=== PATIENT | female | born 2000 | race Caucasian/White ===

== ENCOUNTER 2021-08-23 17:33 | Outpatient (CLI) | payer OTHER, SELFPAY ==
--- NOTE | ~2021-08-23 | XR_ITS ---
EXAMINATION: XR chest 2V DATE: 08/23/2021 17:58 INDICATION: Shortness of breath TECHNIQUE: PA and lateral views of the chest are obtained. COMPARISON: None available FINDINGS: The lungs are free of acute opacities. There is no pleural effusion or pneumothorax. The ca rdiomediastinal silhouette is normal. The visualized bones and soft tissues are unremarkable. IMPRESSION: 1. No acute cardiopulmonary abnormality. Reviewed, dictated and finalized at location F.
== END 2021-08-23 17:34 | disposition home or self-care (01) ==
LOC: CHSIMG 17:42
PROVIDERS: PCP Family Medicine; Visit Provider Family Medicine
DX: R06.89 Other abnormalities of breathing (principal)
CPT/HCPCS: 71046

== ENCOUNTER 2021-12-21 15:53 | Emergency (ER) | payer OTHER, SELFPAY ==
[2021-12-21 16:00] VITALS: BP 126/85; PULSE 94; RESP 20; TEMP 36.5; O2SAT 99
[2021-12-21 16:02] VITALS: BP 126/85; PULSE 94; RESP 20; O2SAT 99
[2021-12-21 16:06] VITALS: TEMP 36.5
[2021-12-21] MEDS: ONDANSETRON INJ 4 MG/2 ML VIAL IV PUSH (16:28)
[2021-12-21] MEDS: SODIUM CHLORIDE 0.9% IV 1,000 ML 999 ML IV CONT (16:30)
[2021-12-21 16:41] LABS: Basophils Absolute Auto 0.03 K/mm3 (0.00-0.10); Basophils Percent Auto 0.2 % (0.0-1.0); Eosinophils Absolute Auto 0.07 K/mm3 (0.02-0.50); Eosinophils Percent Auto 0.5 % (1.0-6.0); Hematocrit 34.9 % (35.0-49.0); Hemoglobin 11.7 g/dL (12.0-15.0); Immature Granulocyte Absolute 0.07 K/mm3 (0.00-0.00); Immature Granulocyte Percent A 0.5 % (0.0-0.0); Lymphocytes Absolute Auto 1.24 K/mm3 (1.10-4.50); Lymphocytes Percent Auto 8.6 % (18.0-42.0); Mean Corpuscular HGB Conc 33.5 g/dL (32.0-36.0); Mean Corpuscular Hemoglobin 29.7 pg (27.0-31.0); Mean Corpuscular Volume 88.6 fL (78.0-102.0); Mean Platelet Volume 9.9 fl (9.2-11.8); Monocytes Absolute Auto 0.78 K/mm3 (0.10-0.90); Monocytes Percent Auto 5.4 % (2.0-11.0); Neutrophils Absolute Auto 12.2 K/mm3 (1.7-7.2); Neutrophils Percent Auto 84.8 % (50.0-70.0); Platelet Count Result 212 K/mm3 (150-420); Red Blood Count 3.94 M/mm3 (4.20-5.40); White Blood Count 14.4 K/mm3 (4.8-10.8)
[2021-12-21 16:56] LABS: Alanine Aminotransferase 19 U/L (14-59); Albumin Level 3.6 g/dL (3.4-5.0); Alkaline Phosphatase 71 U/L (46-116); Anion Gap 10 mmol/L (8-16); Aspartate Amino Transferase 11 U/L (15-37); Bilirubin,Total 0.3 mg/dL (0.00-1.00); Blood Urea Nitrogen 6 mg/dL (7-18); Calcium 8.8 mg/dL (8.5-10.1); Carbon Dioxide 26 mmol/L (21-32); Chloride 101 mmol/L (98-108); Estimated CRCL calculation 109 ml/min; Estimated Glomerular Filt Rate > 60; Glucose 86 mg/dL (70-99); Osmolality Calculated 280 mOsm/kg (285-295); Potassium 3.4 mmol/L (3.5-5.1); Sodium 137 mmol/L (136-145); Total Protein 7.1 g/dL (6.4-8.2)
[2021-12-21 16:58] LABS: Add Urine Microscopic? YES; Appearance Urine Cloudy (Clear); Bilirubin Urine Negative (Negative); Blood Urine Negative (Negative); Color Urine Yellow (Yellow); Glucose Urine UA Negative (Negative); Ketones Urine 3+ (Negative); Leukocyte Esterase Ur Trace (Negative); Nitrate Urine Positive (Negative); Protein Urine Negative (Negative); Urobilinogen Urine 0.2 mg/dL (0.2-1.0); pH Urine 7.5 (5.0-8.0)
[2021-12-21 17:02] LABS: Bacteria Urine 4+ /hpf; RBC Urine None seen /hpf (0-2); Squamous Epithelial Cell Urine Moderate /hpf (Few)
--- NOTE | 2021-12-21 17:07 | ED.NAVMDI ---
HPI - Nausea/Vomiting/Diarrhea General Chief complaint: Nausea/Vomiting/Diarrhea Stated complaint: vomiting () Time Seen by Provider: 12/21/21 16:24 Source: patient and family Mode of arrival: ambulatory Limitations: no limitations History of Present Illness HPI Narrative: This is a 21-year-old female with episodes of nausea vomiting she is 11 weeks with some mild dysuria with no flank pain no fever chills, with no flank pain no chest pain no abdominal pain with no hematuria. MD elicited complaint: nausea and vomiting Related Data Home Medications Medication Instructions Recorded Confirmed albuterol sulfate 90 mcg/actuation 2 puff inhalation PRN 12/21/21 12/21/21 aerosol inhaler prenat.vits,maria guadalupe,[id number] 1 tablet PO DAILY 12/21/21 12/21/21 Allergies Allergy/AdvReac Type Severity Reaction Status Date / Time No Known Allergies Allergy Unverified 07/22/17 10:17 Review of Systems Review of Systems: All systems reviewed & are unremarkable except as noted in HPI and below PMFSH Past Medical History Medical History Patient denies medical problems Exam Const: General: healthy appearing HENMT: Head: normal to inspection General nose exam: Normal external nose present Face and sinus: normal facial exam Mouth: Yes Normal oral and palatal mucosa present Teeth and gingiva: dentition normal Eyes: Conjunctivae: conjunctivae normal Pupils: Equal, round and reactive pupils present EOM: EOMs intact bilaterally Neck: Neck: normal visual inspection, no lymphadenopathy and no meningeal signs Chest: Chest palpation & inspection: normal inspection of the chest Resp: Effort & Inspection: normal respiratory effort Cardio: Rate: regular rate Rhythm: regular rhythm GI: GI Palp: Yes Soft to palpation Auscultation: normal bowel sounds Skin: General skin exam: normal color Neuro: General: patient oriented x3 Cranial nerves: Yes Nystagmus not present Speech: normal speech Gait exam (Neuro): Normal gait present Extrem: General: normal to inspection Psych: Mental Status: mental status grossly normal Affect: normal affect Course Course Emergency Course: patient presents with nausea vomiting received Zofran IV along with IV fluids and blood work and urinalysis reviewed UA shows that the patient has a urinary tract infection and will administer ceftriaxone IM. Vital Signs Vital signs: Vital Signs Pulse Rate 94 12/21/21 16:02 Respiratory Rate 20 12/21/21 16:02 Blood Pressure 126/85 12/21/21 16:02 Pulse Oximetry 99 12/21/21 16:02 Oxygen Delivery Room Air 12/21/21 16:02 Temperature 36.5 C 12/21/21 16:06 Pulse Rate 94 12/21/21 16:02 Respiratory Rate 20 12/21/21 16:02 Blood Pressure 126/85 12/21/21 16:02 Pulse Oximetry 99 12/21/21 16:02 Oxygen Delivery Room Air 12/21/21 16:02 MDM - Nausea/Vomiting/Diarrhea Lab Data Result diagrams: 12/21/21 16:36 12/21/21 16:36 Labs: Lab Results 12/21/21 12/21/21 12/21/21 Range/Units 16:36 16:36 16:51 WBC 14.4 H (4.8-10.8) K/mm3 RBC 3.94 L (4.20-5.40) M/mm3 Hgb 11.7 L (12.0-15.0) g/dL Hct 34.9 L (35.0-49.0) % MCV 88.6 (78.0-102.0) fL MCH 29.7 (27.0-31.0) pg MCHC 33.5 (32.0-36.0) g/dL RDW 12.0 (11.6-14.4) % Plt Count 212 (150-420) K/mm3 MPV 9.9 (9.2-11.8) fl Immature Gran % (Auto) 0.5 H (0.0-0.0) % Neut % (Auto) 84.8 H (50.0-70.0) % Lymph % (Auto) 8.6 L (18.0-42.0) % [place] % (Auto) 5.4 (2.0-11.0) % Eos % (Auto) 0.5 L (1.0-6.0) % Baso % (Auto) 0.2 (0.0-1.0) % Lymph # (Auto) 1.24 (1.10-4.50) K/mm3 Door # (Auto) 0.78 (0.10-0.90) K/mm3 Eos # (Auto) 0.07 (0.02-0.50) K/mm3 Baso # (Auto) 0.03 (0.00-0.10) K/mm3 Abs Immat Gran (auto) 0.07 H (0.00-0.00) K/mm3 Absolute Neuts (auto) 12.2 H (1.7-7.2) K/mm3 Absolute Nuc
[2021-12-21] MEDS: cefTRIAXone 1 GM, LIDOCAINE HCL 1% LOCAL INJ 2.1 ML IM (17:49)
[2021-12-21 17:50] VITALS: BP 123/78; PULSE 20; RESP 18; TEMP 36.3; O2SAT 100
== END 2021-12-21 18:10 | disposition home or self-care (01) ==
PROVIDERS: Emergency Provider Emergency Medicine; PCP Family Medicine
DX: E86.0 Dehydration (principal); R11.2 Nausea with vomiting, unspecified; N30.00 Acute cystitis without hematuria
CPT/HCPCS: 36415; 80053; 81001; 85025; 96361; 96372; 96374; 99284; J0696; J2405; J7030

== ENCOUNTER 2022-05-02 13:12 | Observation (INO) | payer OTHER, SELFPAY ==
[2022-05-02] VITALS (10 sets, daily range): BP systolic 110–133; BP diastolic 52–71; PULSE 99–129; TEMP 36.8; BMI 29.2
--- NOTE | 2022-05-02 14:00 | OBADM ---
This patient, Veena Meyer, admitted to the OB room 116 for observation. Patient/family oriented to hospital policies and general routines including ID bracelet, bed and alarms, visiting hours, pain management, procedures, bathroom and other care routines, personal items, smoking policy, room service/diet, and visiting hours. Patient/Family are encouraged to report perceived risks to care and to ask questions if they do not understand what they are told or what they should do.
[2022-05-02 14:13] LABS: Appearance Urine Slightly Cloudy (Clear); Bilirubin Urine Negative (Negative); Blood Urine Negative (Negative); Color Urine Yellow (Yellow); Glucose Urine UA Negative (Negative); Ketones Urine 3+ mg/dL (Negative); Leukocyte Esterase Ur Trace LEU/UL (Negative); Nitrate Urine Positive (Negative); Protein Urine 1+ mg/dL (Negative); Specific Grav Ur >= 1.030 (1.001-1.035); Urobilinogen Urine 0.2 mg/dL (<2.0)
[2022-05-02 14:20] LABS: Bacteria Urine 2+ /hpf; Mucus Urine Few /lpf; Squamous Epithelial Cell Urine Many /hpf (Few)
[2022-05-02 14:35] LABS: Add Urine Microscopic? YES
[2022-05-02 14:55] LABS: Basophils Percent Auto 0.2 % (0.2-1.2); Eosinophils Percent Auto 0.1 % (0-4.4); Hematocrit 33.3 % (37.0-47.0); Immature Granulocyte Absolute 0.23 K/mm3 (0.00-0.031); Immature Granulocyte Percent A 1.4 % (0-0.5); Lymphocytes Absolute Auto 0.68 K/mm3 (0.9-3.2); Lymphocytes Percent Auto 4.1 % (18.3-44.2); Mean Corpuscular Hemoglobin 29.9 pg (26-34); Mean Corpuscular Volume 90.5 fl (80-100); Mean Platelet Volume 10.3 fl (7.4-10.4); Monocytes Absolute Auto 0.8 K/mm3 (0.1-0.6); Neutrophils Absolute Auto 14.7 K/mm3 (1.3-6.7); Neutrophils Percent Auto 89.2 % (45.5-73.1); Platelet Count Result 157 k/mm3 (150-375); Red Blood Count 3.68 M/mm3 (4.2-5.4); Red Cell Distribution Width 13.2 % (11.5-14.5); White Blood Count 16.5 K/mm3 (4.5-10.0)
[2022-05-02] MEDS: LACTATED RINGERS 1,000 ML 999 ML IV CONT (15:03)
[2022-05-02] MEDS: ONDANSETRON INJ 4 MG/2 ML VIAL IV PUSH (15:03)
[2022-05-02 15:04] LABS: Alanine Aminotransferase 21 U/L (6-35); Albumin Level 3.8 g/dL (3.5-5.1); Alkaline Phosphatase 114 U/L (38-126); Anion Gap 4 mmol/L (8-16); Aspartate Amino Transferase 20 U/L (14-36); Bilirubin,Total 0.4 mg/dL (0.2-1.3); Blood Urea Nitrogen 9 mg/dL (7-17); Calcium 8.5 mg/dL (8.4-10.2); Carbon Dioxide 25 mmol/L (22-30); Chloride 102 mmol/L (98-107); Estimated Glomerular Filt Rate > 60; Glucose 83 mg/dL (65-110); Potassium 3.7 mmol/L (3.4-5.0); Sodium 131 mmol/L (137-145)
[2022-05-02] MEDS: FAMOTIDINE 20 MG/2 ML VIAL IV PUSH (15:06)
--- NOTE | 2022-05-02 15:30 | PC.NURSE ---
Nausea has resolved.
[2022-05-02 15:33] LABS: Fetal Fibronectin Negative
[2022-05-02] MEDS: SODIUM CHLORIDE 0.9% IV 250 ML 100 ML IV CONT (16:15)
[2022-05-02] MEDS: cefTRIAXone 1 GM in DEXTROSE 5% IN WATER 50 ML IVPB (16:19)
--- NOTE | 2022-05-03 16:12 | PM.OBTRLD ---
OB - Triage/Final Diagnosis Visit Information Date of evaluation: 05/30/22 Reason for evaluation: other (nausea, vomiting) Comments/Additional reasons for admission: I have assessed the risk for this patient, Veena Meyer, and determined that she would benefit from observation care. Evaluation Laboratory results: Laboratory Tests 05/02/22 05/02/22 05/02/22 14:03 14:36 14:36 WBC 16.5 H RBC 3.68 L Hgb 11.0 L Hct 33.3 L MCV 90.5 MCH 29.9 MCHC 33.0 RDW 13.2 Plt Count 157 MPV 10.3 Immature Gran % (Auto) 1.4 H Neut % (Auto) 89.2 H Lymph % (Auto) 4.1 L [place] % (Auto) 5.0 Eos % (Auto) 0.1 Baso % (Auto) 0.2 Lymph # (Auto) 0.68 L [place] # (Auto) 0.8 H Eos # (Auto) 0.0 Baso # (Auto) 0.0 Abs Immat Gran (auto) 0.23 H Absolute Neuts (auto) 14.7 H Absolute Nucleated RBC 0.0 Nucleated RBC % 0.0 Sodium Potassium Chloride Carbon Dioxide Anion Gap BUN Creatinine Estim Creat Clear Calc Estimated GFR Glucose Calcium Total Bilirubin AST ALT Alkaline Phosphatase Total Protein Albumin Urine Color Yellow Urine Appearance Slightly cloudy Urine pH 6.0 Ur Specific [place] >= 1.030 Urine Protein 1+ H Urine Glucose (UA) Negative Urine Ketones 3+ H Ur Blood (Man) Negative Urine Nitrate Positive H Urine Bilirubin Negative Urine Urobilinogen 0.2 Leukocyte Esterase Rfl Trace H Urine RBC 6-10 H Urine WBC 4-6 H Ur Squamous Epith Cells Many H Urine Bacteria 2+ H Urine Mucus Few H Fibronectin Negative 05/02/22 14:36 WBC RBC Hgb Hct MCV MCH MCHC RDW Plt Count MPV Immature Gran % (Auto) Neut % (Auto) Lymph % (Auto) [place] % (Auto) Eos % (Auto) Baso % (Auto) Lymph # (Auto) [place] # (Auto) Eos # (Auto) Baso # (Auto) Abs Immat Gran (auto) Absolute Neuts (auto) Absolute Nucleated RBC Nucleated RBC % Sodium 131 L Potassium 3.7 Chloride 102 Carbon Dioxide 25 Anion Gap 4 L BUN 9 Creatinine 0.50 L Estim Creat Clear Calc Not Reportable Estimated GFR > 60 Glucose 83 Calcium 8.5 Total Bilirubin 0.4 AST 20 ALT 21 Alkaline Phosphatase 114 Total Protein 7.0 Albumin 3.8 Urine Color Urine Appearance Urine pH Ur Specific [place] Urine Protein Urine Glucose (UA) Urine Ketones Ur Blood (Man) Urine Nitrate Urine Bilirubin Urine Urobilinogen Leukocyte Esterase Rfl Urine RBC Urine WBC Ur Squamous Epith Cells Urine Bacteria Urine Mucus Fibronectin Vital signs: Vital Signs - 24 hr 05/02/22 18:00 05/02/22 16:30 Temperature 36.8 C Pulse Rate 103 H Blood Pressure 116/52 L
== END 2022-05-02 18:37 | disposition home or self-care (01) ==
PROVIDERS: Advanced Practice Midwife; Admitting Provider Obstetrics & Gynecology; PCP Family Medicine; Visit Provider Obstetrics & Gynecology
DX: O21.2 Late vomiting of pregnancy (principal); O26.893 Other specified pregnancy related conditions, third trimester; R10.9 Unspecified abdominal pain; Z3A.29 29 weeks gestation of pregnancy
CPT/HCPCS: 36415; 80053; 81001; 82731; 84112; 85025; 87077; 87086; 87186; 96361; 96365; 96375; G0378; G0379; J0696; J2405; J7050; J7120

== ENCOUNTER 2022-05-03 06:55 | Observation (INO) | payer OTHER, SELFPAY ==
[2022-05-03] VITALS (16 sets, daily range): BP systolic 107–120; BP diastolic 61–68; PULSE 103–128; RESP 20; TEMP 36.8; O2SAT 95–97; BMI 29.2
--- NOTE | 2022-05-03 07:15 | OBADM ---
This patient, Veena Meyer, admitted to the OB room OB Post 117 for observation. Patient/family oriented to hospital policies and general routines including ID bracelet, bed and alarms, visiting hours, pain management, procedures, bathroom and other care routines, personal items, smoking policy, room service/diet, and visiting hours. Patient/Family are encouraged to report perceived risks to care and to ask questions if they do not understand what they are told or what they should do.
--- NOTE | 2022-05-03 07:17 | PC.NURSE ---
Dr. Weldon informed of this pt's return to L&D with cramping like she had yesterday morning. Gave Dr. 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 Discussed pt started having the intermittent worsening cramping again this morning around 0500 and started having emesis again also. Discussed FHT's 160-170 at present, maternal temp 98.2, pt anxious and uncomfortable.
--- NOTE | 2022-05-03 07:30 | PC.NURSE ---
Pt much calmer already. Hasn't felt a worsening cramp since arrival. Plan of care discussed.
[2022-05-03] MEDS: ONDANSETRON HCL ODT 4 MG TABLET PO (07:36)
[2022-05-03] MEDS: cefTRIAXone 1 GM VIAL IM (08:00)
--- NOTE | 2022-05-03 08:10 | PC.NURSE ---
Nausea much better. Fruit cup, applesause, water, and cristela crackers given to see how she tolerates before giving Macrobid PO.
--- NOTE | 2022-05-03 08:27 | PC.NURSE ---
Dr. Weldon on unit and informed pt feeling better. Reviewed monitor tracing with MD at desk. OK to discharge to home after oral Macrobid if no change in SVE from yesterday. May send with RX for Zofran also.
--- NOTE | 2022-05-03 08:30 | PM.IMHP ---
H&P: HPI History of Present Illness Date/Time: 05/03/22 08:30 Chief Complaint: nausea, cramping, urinary symptoms Narrative: this patient is a 21-year-old female in the 2nd trimester with some uterine cramping, dysuria, nausea. She also has some anxiety. She was admitted for observation yesterday for period of time for the same problem. She was unable to get her antibiotics for urinary tract infection. She was given today a IM shot of Rocephin and she will be started on Macrobid. She will be given Zofran now and at home. She is being given IV fluids. Monitor. There is occasional contraction / cramp it is more rare Than occasional.. There is good movement. There is reassuring status. She is not in labor. She needs treatment for urinary tract infection and nausea. She will be monitored for. Time here in Labor delivery then sent home. She will follow-up in the office. Review of Systems Review of Systems: All systems reviewed & are unremarkable except as noted in HPI and below Constitutional: Constitutional: Denies chills, Denies fatigue, Denies fever(s) and Denies weakness Eyes: Eyes: Denies blurry vision, Denies change in vision, Denies loss of peripheral vision, Denies loss of vision, Denies other visual disturbances and Denies eye pain ENT: Denies vertigo, Denies dizziness, Denies hearing loss, Denies mouth pain, Denies nasal obstruction, Denies neck mass and Denies neck pain Cardiovascular: Cardiovascular: Denies chest pain, Denies diaphoresis, Denies syncope, Denies leg edema and Denies dyspnea Respiratory: Respiratory: Denies chest congestion, Denies cough, Denies hemoptysis, Denies dyspnea and Denies wheezing Gastrointestinal: Gastrointestinal: Denies abdominal pain, Denies constipation, Denies diarrhea, Denies nausea and Denies vomiting Genitourinary: Genitourinary: Denies hematuria, Denies change in libido, Denies nocturia, Denies genital lesions, Denies flank pain and Denies urinary urgency Musculoskeletal: Musculoskeletal: Denies abnormal gait, Denies back pain, Denies myalgias, Denies arthralgias, Denies joint swelling, Denies muscle weakness and Denies neck pain Integumentary/Breasts: Skin/Breast: Denies swelling, Denies breast pain, Denies breast mass, Denies dry skin, Denies nipple discharge, Denies unusual bruising and Denies jaundice Neurologic: Denies Neuro-related abnormal movements, Denies Abnormal speech present, Denies abnormal gait, Denies behavioral changes, Denies confusion, Denies vertigo, Denies dizziness, Denies syncope, Denies loss of vision, Denies memory loss, Denies convulsions and Denies weakness Psychiatric: Psychiatric: Denies abnormal sleep pattern, Denies behavioral changes, Denies change in libido, Denies confusion, Denies depression, Denies anhedonia and Denies memory loss Endocrine: Endocrine: Reports no additional endocrine complaints, Denies change in libido and Denies fatigue Hematologic/Lymphatic: Hematologic/Lymphatic: Reports no additional hematologic/lymphatic complaints Allergic/Immunologic: Allergic/Immunologic: Reports no additional allergic/immunologic complaints and Denies wheezing Meds Home Medications and Allergies Home Medications Medication Instructions Recorded Confirmed Type calcium carbonate 200 mg calcium 200 mg PO QID PRN Heartburn 05/02/22 05/03/22 History (500 mg) chewable tablet (Tums) vit no.95-ferrous 1 tablet PO DAILY 05/02/22 05/03/22 History fumarate 28 mg-folic acid 800 mcg tablet () Allergies Allergy/AdvReac Type Severity Reaction Status Date / Time No Known Allergies Allergy Verified 05/02/22 14:30 Vital Signs Vital Signs - 24 hr 05/03/22 07:14 05/03/22 07:30 05/03/22 07:56 Temperature Pulse Rate 128 H 120 H Respiratory Rate Blood Pressure 117/65 113/62 Pulse Oximetry 97 Oxygen Delivery 05/03/22 08:00 05/03/22 08:01 05/03/22 08:06 Temperature
[2022-05-03] MEDS: NITROFURANTOIN MONOHYD MACROCR 100 MG CAP PO (08:45)
--- NOTE | 2022-05-16 11:32 | PM.OBTRLD ---
OB - Triage/Final Diagnosis Visit Information Comments/Additional reasons for admission: I have assessed the risk for this patient, Veena Meyer, and determined that she would benefit from observation care. Final Diagnosis (1) Nausea/vomiting in : Code(s): O21.9 - Vomiting of , unspecified Status: Acute
== END 2022-05-03 09:25 | disposition home or self-care (01) ==
PROVIDERS: Admitting Provider Obstetrics & Gynecology; PCP Family Medicine; Visit Provider Obstetrics & Gynecology
DX: O26.893 Other specified pregnancy related conditions, third trimester (principal); N94.89 Other specified conditions associated with female genital organs and menstrual cycle; R30.0 Dysuria; F41.9 Anxiety disorder, unspecified; O21.2 Late vomiting of pregnancy; Z79.899 Other long term (current) drug therapy; Z3A.29 29 weeks gestation of pregnancy
CPT/HCPCS: 96372; A9270; G0378; G0379; J0696

== ENCOUNTER 2022-06-04 11:24 | Emergency (ER) | payer OTHER, SELFPAY ==
[2022-06-04] VITALS (8 sets, daily range): BP systolic 111–142; BP diastolic 68–78; PULSE 74–128; RESP 16–27; TEMP 36.6; O2SAT 96–100
--- NOTE | ~2022-06-04 | CT_ITS ---
EXAMINATION: CTA chest PE protocol DATE: 06/04/2022 12:58 INDICATION: Shortness of breath and tachycardia during . TECHNIQUE: Computed tomography (CT) pulmonary angiogram of the chest was performed with 100 mL Omnipa que-350 intravenous contrast. Additional 3D reconstructions utilizing coronal maximum intensity proje ction (MIP) were performed. The dose-length product was 415.68 mGy-cm. COMPARISON: None FINDINGS: Excellent contrast opacification of the pulmonary arteries. There is mild streak artifact from dense contrast in the superior vena cava and right atrium. Mild scattered motion artifact most prominent in the left lower lobe and lingula near the left heart border which decreases sensitivity in some of th e smaller subsegmental pulmonary arteries. No pulmonary embolism. No pneumonia, pulmonary edema, pleu ral effusion or pneumothorax. Heart size is normal. No pericardial effusion. Thoracic aorta is normal in caliber with no dissection. No pathologically enlarged thoracic lymphadenopathy. The visualized u pper abdomen and bones are unremarkable. IMPRESSION: 1. No pulmonary embolism or other acute cardiopulmonary disease. Reviewed, dictated and finalized at location B.
--- NOTE | 2022-06-04 11:34 | ECG_ITS ---
Measurements Intervals [place] Rate: 107 P: 46 IN: 126 QRS: 24 QRSD: 93 T: 5 QT: 327 QTc: 437 Interpretive Statements SINUS TACHYCARDIA VENTRICULAR PREMATURE COMPLEXES VOLTAGE CRITERIA FOR LVH CONSIDER INFERIOR INFARCT, AGE INDETERMINATE ABNORMAL ECG NO PREVIOUS ECG AVAILABLE FOR COMPARISON Electronically Signed On 06-04-2022 12:57:26 CDT by Bridger Padilla D.O.
[2022-06-04 12:06] LABS: Basophils Percent Auto 0.1 % (0.2-1.2); Eosinophils Absolute Auto 0.1 K/mm3 (0-0.3); Eosinophils Percent Auto 0.5 % (0-4.4); Hematocrit 32.1 % (37.0-47.0); Hemoglobin 10.7 g/dL (12.0-15.0); Immature Granulocyte Percent A 1.4 % (0-0.5); Lymphocytes Percent Auto 10.1 % (18.3-44.2); Mean Corpuscular HGB Conc 33.3 g/dl (32-36); Mean Corpuscular Hemoglobin 28.2 pg (26-34); Mean Corpuscular Volume 84.5 fl (80-100); Mean Platelet Volume 10.3 fl (7.4-10.4); Monocytes Percent Auto 7.2 % (2.6-8.5); Neutrophils Absolute Auto 11.2 K/mm3 (1.3-6.7); Neutrophils Percent Auto 80.7 % (45.5-73.1); Platelet Count Result 171 k/mm3 (150-375); Red Cell Distribution Width 13.2 % (11.5-14.5); White Blood Count 13.8 K/mm3 (4.5-10.0)
--- NOTE | 2022-06-04 12:07 | PC.NURSE ---
EDP at bedside to assess pt.
--- NOTE | 2022-06-04 12:09 | ED.SOB ---
HPI - SOB/Dyspnea General Chief Complaint: Shortness of Breath/Dyspnea Stated Complaint: sob, 34 weeks gestation Time Seen by Provider: 06/04/22 12:00 History of Present Illness HPI Narrative: Patient is a 21-year-old female at 34 weeks gestation presenting with palpitations and shortness of breath. Patient states that her symptoms started about 2 days ago. States it started with her palpitations and lightheadedness. States that she tried to rest all weekend but her symptoms continued. She started feeling short of breath around the same time the palpitations started but this is gradually worsened. She spoke with her OB's office who tried to get her set up for an appointment that patient wanted to come in for evaluation. Currently, she states that she feels like her heart is racing. She denies chest pain. Denies fevers or chills, cough, headache, abdominal pain, nausea or vomiting, diarrhea. Denies leg swelling. Denies vaginal bleeding or contractions. Related Data Home Medications Medication Instructions Recorded Confirmed albuterol sulfate 90 mcg/actuation 2 puff inhalation PRN 12/21/21 12/21/21 aerosol inhaler prenat.vits,maria guadalupe,[id number] 1 tablet PO DAILY 12/21/21 12/21/21 Allergies Allergy/AdvReac Type Severity Reaction Status Date / Time No Known Allergies Allergy Unverified 07/22/17 10:17 Review of Systems Review of Systems: All systems reviewed & are unremarkable except as noted in HPI and below PMFSH Past Medical History Medical History Patient denies medical problems Exam Narrative: GENERAL: Well-appearing, well-nourished, and in no acute distress. HEAD: Normocephalic, atraumatic. EYES: PERRLA and EOMI. ENT: Nares clear, no rhinorrhea or epistaxis. Mucous membranes moist. NECK: Supple. CHEST: Clear to auscultation. No respiratory distress. HEART: Tachycardic, regular rhythm Normal peripheral pulses. ABDOMEN: Gravid abdomen, soft, nontender EXTREMITIES: Normal range of motion. No edema. SKIN: Warm, dry, no rash. NEURO: No focal deficits. Alert and oriented x3. PSYCH: Normal mood and affect. Course Vital Signs Vital signs: Vital Signs Temperature 98 F 06/04/22 11:28 Pulse Rate 128 H 06/04/22 11:28 Respiratory Rate 16 06/04/22 11:28 Blood Pressure 111/78 06/04/22 11:28 Pulse Oximetry 99 06/04/22 11:28 Temperature 98 F 06/04/22 11:28 Pulse Rate 111 H 06/04/22 12:05 Respiratory Rate 21 H 06/04/22 12:05 Blood Pressure 131/71 06/04/22 12:05 Pulse Oximetry 100 06/04/22 12:05 Oxygen Delivery Room Air 06/04/22 11:59 MDM - SOB/Dyspnea MDM Narrative Medical decision making narrative: Patient is a 21-year-old female at 34 weeks presenting with palpitations and shortness of breath. Patient is tachycardic in the 110s to 120s. Normotensive and saturating well on room air. EKG per my interpretation shows sinus tachycardia, normal axis, occasional PVC, no ST elevations or depressions. CT PE has been ordered at this time. Had discussion with the patient about the radiation exposure to the fetus. Discussed we do everything possible to protect fetus from the radiation. Unfortunately, we need a CT PE to evaluate for pulmonary embolus given her , tachycardia, shortness of breath. CT PE shows no evidence of pulmonary embolism. No pneumonia or effusions. Blood work with leukocytosis. Troponin is undetectable. TSH is normal. UA is contaminated, patient denies any urinary symptoms. On reevaluation, the patient is resting comfortably. Patient states that her symptoms have improved. Her heart rate has come down to around 90. Discussed the reassuring work-up with the patient. Patient states that she has already spoken with her COMMUNITY OUTREACH COORDINATOR who is going to order a Holter monitor. Advised that she follow-up closely with them as well as her primary care provider. Appropriate return precautions were give
[2022-06-04 12:24] LABS: Alanine Aminotransferase 29 U/L (6-35); Albumin Level 3.8 g/dL (3.5-5.1); Alkaline Phosphatase 163 U/L (38-126); Anion Gap 7 mmol/L (8-16); Aspartate Amino Transferase 21 U/L (14-36); Bilirubin,Total 0.4 mg/dL (0.2-1.3); Blood Urea Nitrogen 6 mg/dL (7-17); Calcium 9.1 mg/dL (8.4-10.2); Carbon Dioxide 21 mmol/L (22-30); Chloride 104 mmol/L (98-107); Estimated CRCL calculation 170 ml/min; Estimated Glomerular Filt Rate > 60; Glucose 104 mg/dL (65-110); Potassium 3.7 mmol/L (3.4-5.0); Sodium 132 mmol/L (137-145)
[2022-06-04] MEDS: SODIUM CHLORIDE 0.9% IV 1,000 ML 999 ML IV CONT ×2 (12:31→14:08)
[2022-06-04 13:02] LABS: Appearance Urine Cloudy (Clear); Bacteria Urine 3+ /hpf; Bilirubin Urine Negative (Negative); Blood Urine Negative (Negative); Color Urine Yellow (Yellow); Glucose Urine UA Negative (Negative); Ketones Urine Negative (Negative); Leukocyte Esterase Ur 2+ LEU/UL (Negative); Need Manual Microscopic Reviewed; Nitrate Urine Negative (Negative); Non Pathogenic Casts 0-2; Protein Urine Negative (Negative); RBC Urine 0-2 /hpf (0-2); Specific Grav Ur 1.016 (1.001-1.035); Squamous Epithelial Cell Urine Many /hpf (Few); Urobilinogen Urine 0.2 mg/dL (<2.0); WBC Urine 51-100 /hpf; pH Urine 6.5 (5.0-9.0)
[2022-06-04 13:03] LABS: Add Urine Microscopic? YES
[2022-06-04 14:03] LABS: Influenza A QL RT-PCR Negative (Negative); Influenza B QL RT-PCR Negative (Negative); SARS-CoV-2 RNA PCR Negative
[2022-06-04 14:22] LABS: Magnesium 1.6 mg/dL (1.6-2.3)
[2022-06-04 14:35] LABS: Troponin I < 0.012 ng/mL (0.000-0.034)
== END 2022-06-04 16:13 | disposition home or self-care (01) ==
PROVIDERS: Emergency Medicine; Emergency Provider Emergency Medicine; PCP Family Medicine
DX: O26.893 Other specified pregnancy related conditions, third trimester (principal); R06.02 Shortness of breath; R00.2 Palpitations; Z20.822 Contact with and (suspected) exposure to COVID-19; Z3A.34 34 weeks gestation of pregnancy
CPT/HCPCS: 36415; 71275; 80053; 81001; 83735; 84443; 84484; 85025; 87086; 87088; 87636; 93005; 96360; 96361; 99284; J7030; Q9967

== ENCOUNTER 2022-06-06 13:25 | Emergency (ER) | payer OTHER, SELFPAY ==
--- NOTE | 2022-06-06 13:27 | ECG_ITS ---
Measurements Intervals [place] Rate: 118 P: 57 NE: 128 QRS: 37 QRSD: 106 T: 16 QT: 295 QTc: 415 Interpretive Statements SINUS TACHYCARDIA POSSIBLE LEFT ATRIAL ENLARGEMENT MINIMAL Q WAVES- INF/LAT LEADS ABNORMAL ECG NO PREVIOUS ECG AVAILABLE FOR COMPARISON Electronically Signed On 06-06-2022 13:48:58 CDT by Bridger Padilla D.O.
[2022-06-06 13:34] VITALS: BP 129/77; PULSE 129; RESP 18; TEMP 36.9; O2SAT 100
[2022-06-06 13:48] VITALS: PULSE 130
[2022-06-06] MEDS: LACTATED RINGERS 1,000 ML 999 ML IV CONT (13:58)
[2022-06-06 14:06] LABS: Basophils Percent Auto 0.1 % (0.2-1.2); Eosinophils Percent Auto 0.3 % (0-4.4); Hematocrit 33.5 % (37.0-47.0); Hemoglobin 11.1 g/dL (12.0-15.0); Immature Granulocyte Absolute 0.11 K/mm3 (0.00-0.031); Immature Granulocyte Percent A 0.8 % (0-0.5); Lymphocytes Absolute Auto 1.31 K/mm3 (0.9-3.2); Lymphocytes Percent Auto 9.1 % (18.3-44.2); Mean Corpuscular HGB Conc 33.1 g/dl (32-36); Mean Corpuscular Hemoglobin 28.6 pg (26-34); Mean Corpuscular Volume 86.3 fl (80-100); Mean Platelet Volume 10.2 fl (7.4-10.4); Monocytes Absolute Auto 1.1 K/mm3 (0.1-0.6); Monocytes Percent Auto 7.6 % (2.6-8.5); Neutrophils Absolute Auto 11.8 K/mm3 (1.3-6.7); Neutrophils Percent Auto 82.1 % (45.5-73.1); Platelet Count Result 172 k/mm3 (150-375); Red Blood Count 3.88 M/mm3 (4.2-5.4); Red Cell Distribution Width 13.4 % (11.5-14.5); White Blood Count 14.4 K/mm3 (4.5-10.0)
[2022-06-06 14:17] LABS: Alanine Aminotransferase 27 U/L (6-35); Albumin Level 3.7 g/dL (3.5-5.1); Alkaline Phosphatase 155 U/L (38-126); Anion Gap 6 mmol/L (8-16); Aspartate Amino Transferase 24 U/L (14-36); Bilirubin,Total 0.4 mg/dL (0.2-1.3); Blood Urea Nitrogen 7 mg/dL (7-17); Calcium 9.3 mg/dL (8.4-10.2); Carbon Dioxide 25 mmol/L (22-30); Chloride 104 mmol/L (98-107); Estimated CRCL calculation 155 ml/min; Estimated Glomerular Filt Rate > 60; Glucose 99 mg/dL (65-110); Potassium 3.8 mmol/L (3.4-5.0); Sodium 135 mmol/L (137-145)
--- NOTE | 2022-06-06 14:17 | ED.ARRPALP ---
HPI - Arrhythmia/Palpitations General Chief Complaint: Arrhythmia/Palpitations Stated Complaint: heart palpitations Time Seen by Provider: 06/06/22 13:46 History of Present Illness HPI narrative: Patient has been having palpitations last couple weeks, have been seen here 2 days ago and had a CT PE done that was negative for blood clots. She was at work earlier, had been stressed and noticed that her heart rate had come up to 150, so she came in here. Denies any difficulty breathing, nausea vomiting, abdominal pain, this is her first and overall she does not feel great. Related Data Home Medications Medication Instructions Recorded Confirmed calcium carbonate 200 mg calcium 200 mg PO QID PRN Heartburn 05/02/22 05/03/22 (500 mg) chewable tablet (Tums) vit no.95-ferrous 1 tablet PO DAILY 05/02/22 05/03/22 fumarate 28 mg-folic acid 800 mcg tablet () Allergies Allergy/AdvReac Type Severity Reaction Status Date / Time No Known Allergies Allergy Verified 06/06/22 13:25 Review of Systems Review of Systems: CONST: No fever. HEENT: No sore throat C/V: Palpitations RESP: No cough GI: No nausea or vomiting : No dysuria. M/S: No joint pain. SKIN: No rash. NEURO: [No headache or focal numbness or weakness] PSYCH: Slightly anxious Exam Narrative: EXAMINATION OF ORGAN SYSTEMS/BODY AREAS: Constitutional: Vital signs per nursing GENERAL:[No acute distress, non-toxic appearing.] HEAD: Normal with no signs of head trauma. EYES: EOMI, conjunctiva normal ENT: Hearing grossly intact LUNGS: Nonlabored breathing. Normal breath sounds. HEART: Tachycardic ABD: [Soft], gravid, [nontender to palpation] EXT: Normal range of motion SKIN: [No rashes or lesions.] NEURO: [Alert and oriented x 3. No gross focal sensory or strength deficits.] PSYCH: Normal affect Course Vital Signs Vital signs: Vital Signs Temperature 98.4 F 06/06/22 13:34 Pulse Rate 129 H 06/06/22 13:34 Respiratory Rate 18 06/06/22 13:34 Blood Pressure 129/77 06/06/22 13:34 Pulse Oximetry 100 06/06/22 13:34 Oxygen Delivery Room Air 06/06/22 13:34 Temperature 98.4 F 06/06/22 13:34 Pulse Rate 130 H 06/06/22 13:48 Respiratory Rate 18 06/06/22 13:34 Blood Pressure 129/77 06/06/22 13:34 Pulse Oximetry 100 06/06/22 13:34 Oxygen Delivery Room Air 06/06/22 13:34 MDM - Arrhythmia/Palpitations MDM Narrative Medical decision making narrative: Patient who is 34 weeks presenting with palpitations, has been seen for this recently with a negative CT PE, she was at work when she started feeling more palpitations and heart rate to 150 so she got worried and came in here. Vital signs here notable for initial tachycardia, she is otherwise well-appearing, nonlabored respirations. I will repeat some basic labs here, and give her liter of fluids. Labs show WBC 14 which was stable from 06/04/22. I did locate her CT-PE scan 06/04/22 13:25 that was negative for any PE. On reevaluation, her heart rate has normalized to the 80s, she is resting comfortably, she has a follow-up for Holter monitor placement on Saturday. Ambulating without any issues. I have let her know that she can always return to the ER for any further issues. Lab Data 06/06/22 13:56 06/06/22 13:56 Labs: Lab Results 06/06/22 06/06/22 06/06/22 Range/Units 13:56 13:56 13:56 WBC 14.4 H (4.5-10.0) K/mm3 RBC 3.88 L (4.2-5.4) M/mm3 Hgb 11.1 L (12.0-15.0) g/dL Hct 33.5 L (37.0-47.0) % MCV 86.3 (80-100) fl MCH 28.6 (26-34) pg MCHC 33.1 (32-36) g/dl RDW 13.4 (11.5-14.5) % Plt Count 172 (150-375) k/mm3 MPV 10.2 (7.4-10.4) fl Immature Gran % (Auto) 0.8 H (0-0.5) % Neut % (Auto) 82.1 H (45.5-73.1) % Lymph % (Auto) 9.1 L (18.3-44.2) % [place] % (Auto) 7.6 (2.6-8.5) % Eos % (Auto) 0.3 (0-4.4) % Baso % (Auto) 0.1 L (0.2-1.2) % Ly
[2022-06-06 14:29] LABS: Troponin I < 0.012 ng/mL (0.000-0.034)
[2022-06-06 14:33] LABS: D Dimer 0.89 ug/mL (<0.48)
[2022-06-06 15:36] VITALS: BP 119/86; PULSE 93; RESP 14; O2SAT 99
== END 2022-06-06 15:38 | disposition home or self-care (01) ==
PROVIDERS: Emergency Provider Emergency Medicine; PCP Family Medicine
DX: O99.891 Other specified diseases and conditions complicating pregnancy (principal); R00.0 Tachycardia, unspecified; Z3A.34 34 weeks gestation of pregnancy
CPT/HCPCS: 36415; 80053; 84484; 85025; 85380; 93005; 96360; 96361; 99283; J7120

== ENCOUNTER 2022-06-08 10:02 | Outpatient (CLI) | payer OTHER, SELFPAY ==
--- NOTE | 2022-06-11 16:19 | WPDHOLTEREM ---
Holter/Event Monitor Holter/Event Monitor Date of procedure: 06/08/22 Holter/Event Procedure: 24 Hr Holter Monitor Indications: Tachycardia Conclusion: 1. 24 hour holter monitor on 06/08/22. 2. Underlying rhythm is sinus rhythm. HR range 50-164 bpm; average HR 94 bpm. HR at 164 bpm was at 10:20. 3. There are 126 premature supraventricular complexes and 14 supraventricular couplets. No supraventricular tachycardia. 4. There are 231 premature ventricular complexes. No ventricular tachycardia. 5. No sinoatrial or atrioventricular blocks. No significant pauses greater than 2 seconds. 6. No symptoms available for correlation.
== END 2022-06-08 10:03 | disposition home or self-care (01) ==
LOC: ANHCARD 10:04
PROVIDERS: Visit Provider Obstetrics & Gynecology
DX: R00.0 Tachycardia, unspecified (principal)
CPT/HCPCS: 93225; 93226

== ENCOUNTER 2022-06-21 16:17 | Outpatient (CLI) | payer OTHER, SELFPAY ==
[2022-06-21 16:45] VITALS: BP 125/69; PULSE 104
[2022-06-21 17:07] VITALS: BP 125/69; PULSE 82
== END 2022-06-21 17:08 | disposition home or self-care (01) ==
LOC: ANHOBOP 16:23 → ANHLDR 16:28
PROVIDERS: PCP Family Medicine; Visit Provider Obstetrics & Gynecology
DX: O42.90 Premature rupture of membranes, unspecified as to length of time between rupture and onset of labor, unspecified weeks of gestation (principal); Z3A.00 Weeks of gestation of pregnancy not specified
CPT/HCPCS: 59025; 84112; 99199

== ENCOUNTER 2022-07-05 15:04 | Observation (INO) | payer OTHER, SELFPAY ==
--- NOTE | 2022-07-05 17:07 | OBADM ---
This patient, Veena Meyer, admitted to the OB room Labor/Delivery/Recovery 106 for observation. Patient/family oriented to hospital policies and general routines including ID bracelet, bed and alarms, visiting hours, pain management, procedures, bathroom and other care routines, personal items, smoking policy, room service/diet, and visiting hours. Patient/Family are encouraged to report perceived risks to care and to ask questions if they do not understand what they are told or what they should do.
--- NOTE | 2022-07-17 08:05 | PM.OBTRLD ---
OB - Triage/Final Diagnosis Visit Information Comments/Additional reasons for admission: I have assessed the risk for this patient, Veena Meyer, and determined that she would benefit from observation care. Final Diagnosis (1) False labor: Code(s): O47.9 - False labor, unspecified Status: Acute
== END 2022-07-05 17:15 | disposition home or self-care (01) ==
PROVIDERS: Admitting Provider Obstetrics & Gynecology; PCP Family Medicine; Visit Provider Obstetrics & Gynecology
DX: O47.1 False labor at or after 37 completed weeks of gestation (principal); Z3A.38 38 weeks gestation of pregnancy
CPT/HCPCS: G0378; G0379

== ENCOUNTER 2022-07-09 04:50 | Inpatient (IN) | payer OTHER, SELFPAY ==
[2022-07-09] VITALS (62 sets, daily range): BP systolic 70–174; BP diastolic 44–145; PULSE 55–199; RESP 16; TEMP 36.1–36.9; O2SAT 98–100; BMI 34.4
--- NOTE | 2022-07-09 05:20 | LDADM ---
This patient, Veena Meyer, was admitted to Labor/Delivery/Recovery 103 on 07/09/22 at 04:50. Plans for labor, pain management and were discussed with patient. Patient/family oriented to hospital policies and general routines including ID bracelet, bed and alarms, visiting hours, pain management, procedures, bathroom and other care routines, personal items, smoking policy, room service/diet and guest tray routines, security routines, and visiting hours. Patient/Family are encouraged to report perceived risks to care and to ask questions if they do not understand what they are told or what they should do. See [facility]BI[facility] for further documentation.
[2022-07-09] MEDS: OXYTOCIN 30 UNITS/NS 500 ML 30 UNITS/500 ML BAG 6 UNITS IV CONT (05:51)
[2022-07-09] MEDS: LACTATED RINGERS 1,000 ML 125 ML IV CONT ×2 (05:52→08:21)
[2022-07-09] MEDS: ONDANSETRON INJ 4 MG/2 ML VIAL IV PUSH (05:56)
[2022-07-09 05:59] LABS: Basophils Percent Auto 0.2 % (0.2-1.2); Eosinophils Absolute Auto 0.1 K/mm3 (0-0.3); Eosinophils Percent Auto 0.9 % (0-4.4); Hematocrit 32.9 % (37.0-47.0); Hemoglobin 10.6 g/dL (12.0-15.0); Immature Granulocyte Absolute 0.08 K/mm3 (0.00-0.031); Immature Granulocyte Percent A 0.9 % (0-0.5); Lymphocytes Absolute Auto 1.66 K/mm3 (0.9-3.2); Lymphocytes Percent Auto 17.9 % (18.3-44.2); Mean Corpuscular HGB Conc 32.2 g/dl (32-36); Mean Corpuscular Hemoglobin 27.4 pg (26-34); Monocytes Absolute Auto 0.9 K/mm3 (0.1-0.6); Monocytes Percent Auto 9.6 % (2.6-8.5); Neutrophils Absolute Auto 6.6 K/mm3 (1.3-6.7); Neutrophils Percent Auto 70.5 % (45.5-73.1); Platelet Count Result 150 k/mm3 (150-375); Red Blood Count 3.87 M/mm3 (4.2-5.4); White Blood Count 9.3 K/mm3 (4.5-10.0)
--- NOTE | 2022-07-09 07:50 | PM.IMHP ---
H&P: HPI History of Present Illness Date/Time: 07/09/22 07:50 Chief Complaint: Induction of labor Review of Systems Review of Systems: All systems reviewed & are unremarkable except as noted in HPI and below Constitutional: Constitutional: Reports as per HPI and Reports no additional constitutional complaints Eyes: Eyes: Reports as per HPI ENT: Reports system reviewed and no additional complaints, except as documented Cardiovascular: Cardiovascular: Reports as per HPI Respiratory: Respiratory: Reports as per HPI Gastrointestinal: Gastrointestinal: Reports as per HPI Genitourinary: Genitourinary: Reports no additional female genitourinary complaints Musculoskeletal: Musculoskeletal: Reports no additional musculoskeletal complaints Integumentary/Breasts: Skin/Breast: Reports system reviewed and no additional complaints, except as docu Neurologic: Reports system reviewed and no additional complaints, except as documented Psychiatric: Psychiatric: Reports no additional psychiatric complaints Endocrine: Endocrine: Reports no additional endocrine complaints Hematologic/Lymphatic: Hematologic/Lymphatic: Reports no additional hematologic/lymphatic complaints Allergic/Immunologic: Allergic/Immunologic: Reports no additional allergic/immunologic complaints [facility] Past Medical History Medical History Patient denies medical problems Family History Family History Grandparent Cervical cancer Grandparent Colon cancer Social History Social History Smoking status: Never smoker Substance use: never Lack of Transportation: No Lack of Food: Never True Current Housing: I Have Housing Concerned About Future Housing: No Difficulty Paying Gas/Electric Bills: No Difficulty Paying for Meds: No Currently Unemployed: No Education: High School Diploma/GED Difficulty w/ Childcare or Family Care: No Spiritual care concerns: No Meds Home Medications and Allergies Home Medications Medication Instructions Recorded Confirmed Type calcium carbonate 200 mg calcium 200 mg PO QID PRN Heartburn 05/02/22 07/09/22 History (500 mg) chewable tablet (Tums) vit no.95-ferrous 1 tablet PO DAILY 05/02/22 07/09/22 History fumarate 28 mg-folic acid 800 mcg tablet () Allergies Allergy/AdvReac Type Severity Reaction Status Date / Time No Known Allergies Allergy Verified 07/09/22 06:04 Vital Signs Vital Signs - 24 hr 07/09/22 05:05 07/09/22 06:00 07/09/22 06:15 Temperature 97 F L Pulse Rate 74 75 Respiratory Rate 16 Blood Pressure 121/73 124/78 Oxygen Delivery 07/09/22 06:31 07/09/22 06:46 07/09/22 07:00 Temperature Pulse Rate 88 81 92 Respiratory Rate Blood Pressure 174/145 H 124/71 137/91 H Oxygen Delivery 07/09/22 07:16 07/09/22 07:30 07/09/22 07:47 Temperature Pulse Rate 93 75 97 Respiratory Rate Blood Pressure 118/93 H 111/57 L 151/91 H Oxygen Delivery 07/09/22 05:18 Temperature Pulse Rate Respiratory Rate Blood Pressure Oxygen Delivery Room Air Exam Const: General: cooperative and healthy appearing Orientation/consciousness: oriented to person, oriented to place, oriented to time and patient oriented x3 Limitations: no limitations HENMT: Head: normal to inspection Ears: hearing grossly normal bilaterally Face/Nose/Sinus: Normal external nose present and normal facial exam Face and sinus: normal facial exam Mouth: Yes Normal oral and palatal mucosa present Teeth and gingiva: dentition normal Throat: posterior oropharynx normal Eyes: General: appearance normal, both eyes and all related structures Neck: Neck: normal visual inspection Thyroid: thyroid normal Chest: Chest palpation & inspection: normal inspection of the chest
--- NOTE | 2022-07-09 07:51 | WPDOBADMIT ---
Obstetrics - Admit Note Admission Note: 21 y/o G1 at 39 weeks here for induction of labor VSS Contractions regular FHR category 1 Cervix 4/80/-2 AROM moderate amount of clear odorless fluid Anticipate record reviewed. No pertinent additions to the history and/or any subsequent changes in the physical findings that are not consistent with the expected course of the were found. Additions to the history and/or subsequent changes in the physical findings follow. None.
--- NOTE | 2022-07-09 08:28 | WPDANESEPP ---
Anes - Eval Pre Procedure Procedure: Labor Epidural Date/Time: 07/09/22 08:28 Preop Diagnosis: Labor Pain Pre Op Diagnosis: IOL Patient Data Age: 21 Gender: F Height: 1.63 m Weight: 90.9 kg Last Vital Signs Temp 36.1 C L 07/09/22 05:05 Pulse 59 L 07/09/22 08:26 Resp 16 07/09/22 05:05 BP 127/83 07/09/22 08:26 O2 Del Method Room Air 07/09/22 05:18 Allergies Allergy/AdvReac Type Severity Reaction Status Date / Time No Known Allergies Allergy Verified 07/09/22 06:04 Home Medications Medication Instructions Recorded Confirmed Type calcium carbonate 200 mg calcium 200 mg PO QID PRN Heartburn 05/02/22 07/09/22 History (500 mg) chewable tablet (Tums) vit no.95-ferrous 1 tablet PO DAILY 05/02/22 07/09/22 History fumarate 28 mg-folic acid 800 mcg tablet () Laboratory Tests 07/09/22 07/09/22 07/09/22 05:01 05:01 05:01 WBC 9.3 K/mm3 K/mm3 (4.5-10.0) RBC 3.87 M/mm3 L M/mm3 (4.2-5.4) Hgb 10.6 g/dL L g/dL (12.0-15.0) Hct 32.9 % L % (37.0-47.0) MCV 85.0 fl fl (80-100) MCH 27.4 pg pg (26-34) MCHC 32.2 g/dl g/dl (32-36) RDW 14.0 % % (11.5-14.5) Plt Count 150 k/mm3 k/mm3 (150-375) MPV 11.0 fl H fl (7.4-10.4) Immature Gran % (Auto) 0.9 % H % (0-0.5) Neut % (Auto) 70.5 % % (45.5-73.1) Lymph % (Auto) 17.9 % L % (18.3-44.2) Hutchinson % (Auto) 9.6 % H % (2.6-8.5) Eos % (Auto) 0.9 % % (0-4.4) Baso % (Auto) 0.2 % % (0.2-1.2) Lymph # (Auto) 1.66 K/mm3 K/mm3 (0.9-3.2) Hutch[place] # (Auto) 0.9 K/mm3 H K/mm3 (0.1-0.6) Eos # (Auto) 0.1 K/mm3 K/mm3 (0-0.3) Baso # (Auto) 0.0 K/mm3 K/mm3 (0.0-0.1) Abs Immat Gran (auto) 0.08 K/mm3 H K/mm3 (0.00-0.031) Absolute Neuts (auto) 6.6 K/mm3 K/mm3 (1.3-6.7) Absolute Nucleated RBC 0.0 K/mm3 K/mm3 (0.0-0.012) Nucleated RBC % 0.0 % % (0.0-0.2) RPR Pending Blood Type O Positive Antibody Screen Negative : gestational age (, WILBER 07/16/22) Patient hx anesthesia problems: none Family hx anesthesia problems: none Results Review: All pre-operative results and documents have been reviewed as part of the pre-operative evaluation. [facility] Past Medical History Medical History Patient denies medical problems Family History Family History Grandparent Cervical cancer Grandparent Colon cancer Social History Social History Smoking status: Never smoker Substance use: never Lack of Transportation: No Lack of Food: Never True Current Housing: I Have Housing Concerned About Future Housing: No Difficulty Paying Gas/Electric Bills: No Difficulty Paying for Meds: No Currently Unemployed: No Education: High School Diploma/GED Difficulty w/ Childcare or Family Care: No Spiritual care concerns: No Exam Day of Procedure 07/09/22 08:28 Patient weight: obese Heart: regular rate and rhythm Lungs: normal air movement Airway: Mallampati scale class II Neurological: alert and oriented
[2022-07-09 09:40] LABS: Rapid Plasma Reagin Non-Reactive (NonReactive)
--- NOTE | 2022-07-09 13:30 | PM.OBPRVD ---
OB - Delivery Note Procedure Delivery date: 07/09/22 Induction method: Per Pitocin Protocol Delivery monitor: External FHT and External Uterine Route of delivery: Episiotomy description: None Laceration Description: Other (bilateral 1st degree sulcal) Delivery repair: vicryl Quantitative Blood Loss (ml): 105 Anesthesia type: Epidural Narrative: Mother and baby in stable condition. Cord gasses collected by nursery staff. Baby Date of : 07/09/22 Time of : 13:06 Weeks of gestation at delivery: 39 Infant gender: Female presentation: vertex position: Left Occiput Anterior Placenta delivery description: Spontaneous Cord Vessel Description: Delayed Cord Clamping
[2022-07-09] MEDS: OXYTOCIN 30 UNITS/NS 500 ML 30 UNITS/500 ML BAG 125 UNITS IV CONT (13:50)
[2022-07-09] MEDS: ACETAMINOPHEN 325 MG TABLET 650 MG PO (15:03)
[2022-07-09] MEDS: WITCH HAZEL 40 PADS 1 PAD TOPICAL (15:04)
[2022-07-09] MEDS: BENZOCAINE 20% AER SPR (*SP) 56 GM CAN 1 SPRAY TOPICAL (15:05)
--- NOTE | 2022-07-09 16:28 | PC.NURSE ---
Patient transferred to post room #291 via wheelchair. Support person present. Oriented to unit, room, information board, rooming in, admission packet and security measures. Patient verbalizes understanding.
[2022-07-09] MEDS: IBUPROFEN 600 MG TABLET PO (16:57)
[2022-07-10] MEDS: IBUPROFEN 600 MG TABLET PO ×4 (04:00→23:54)
[2022-07-10] MEDS: ACETAMINOPHEN 325 MG TABLET 650 MG PO ×3 (04:00→19:42)
[2022-07-10 04:50] LABS: Hemoglobin 9.5 g/dL (12.0-15.0)
--- NOTE | 2022-07-10 07:50 | PM.OBPNVD ---
OB - PN: Subj Subjective Date/time seen: 07/10/22 07:50 Patient comments: no complaints baby status: doing well OB - PN: Obj Data Labs 07/10/22 04:05 Labs: Laboratory Results - last 24 hr 07/09/22 07/10/22 05:01 04:05 Hgb 9.5 L Hct 29.0 L RPR Non-reactive OB - PN A/P Plan day: 1 Plan: routine care Time Spent With Patient Time: Total time spent is greater than 50% in coordination of care (as documented) at patient's floor/unit and/or counseling patient: Time with patient: less than 15 minutes Review of Systems Review of Systems: All systems reviewed & are unremarkable except as noted in HPI and below Exam Narrative: Fundus firm and vaginal flow controlled. No lower ext redness, warmth, or edema. Negative homans. Const: General: comfortable Chest: Breast/axilla inspection: normal inspection of the breasts Resp: Effort & Inspection: normal respiratory effort Cardio: Rate: regular rate GI: GI Palp: Yes Soft to palpation Psych: Appearance: grossly normal Affect: normal affect Attitude: cooperative Thought content: Yes Normal thought content present Judgement: Good judgement present (Psych)
[2022-07-10 08:10] VITALS: BP 123/66; PULSE 84; RESP 16; TEMP 36.9; O2SAT 99
[2022-07-10] MEDS: DOCUSATE SODIUM 100 MG CAPSULE PO ×2 (08:14→16:34)
[2022-07-10] MEDS: POLYSACCHARIDE IRON COMPLEX 150 MG CAPSULE PO ×2 (08:14→16:34)
[2022-07-10 12:00] VITALS: BP 115/71; PULSE 90; RESP 16; TEMP 36.8; O2SAT 99
[2022-07-10 20:30] VITALS: BP 134/72; PULSE 84; RESP 16; TEMP 36.8; O2SAT 98
[2022-07-11] MEDS: IBUPROFEN 600 MG TABLET PO (06:40)
--- NOTE | 2022-07-11 07:27 | PM.OBDSVD ---
DS: Admitting Diagnosis Discharge Date 07/11/2022 Admitting Diagnosis term pregnacy OB - DS: Summary OB Procedures : None OB Procedures Intrapartum: Spontaneous Vag Delivery OB Procedures: : None Time Spent with Patient Time attestation: Total time spent providing and/or coordinating discharge services: Discharge Plan Discharge Discharging Clinician: Kelsy Weldon Patient Disposition: Home, Self-Care Activity: pelvic rest Diet: regular Patient Instructions: Antibiotic Form Stand Alone Forms: General Discharge Information Follow-up/Referrals: Kelsy Weldon MD [Physician] - Discharge Medications: Continued calcium carbonate [Tums] 200 mg calcium (500 mg) Tablet,Chewable 200 mg PO QID PRN (Reason: Heartburn) PNV cmb#95-ferrous fumarate-FA [] 28 mg iron- 800 mcg Tablet 1 tablet PO DAILY Date of admission: 07/09/22 04:50 Primary Care Provider: Ilan Adkins Admitting Provider: Kelsy Weldon Attending physician on admission: Kelsy Weldon Condition: Stable
--- NOTE | 2022-07-11 07:28 | PM.OBPNVD ---
OB - PN: Subj Subjective Date/time seen: 07/11/22 07:28 Patient comments: no complaints, pain well controlled and tolerating diet OB - PN: Obj Data Labs 07/10/22 04:05 OB - PN A/P Plan day: 2 Plan: routine care and discharge home Time Spent With Patient Time: Total time spent is greater than 50% in coordination of care (as documented) at patient's floor/unit and/or counseling patient: Exam Const: General: comfortable and no acute distress Resp: Effort & Inspection: normal respiratory effort Auscultation: no rales, no rhonchi and no wheezes Cardio: Rate: regular rate Heart sounds: no click, no murmurs and no rubs GI: GI Palp: Yes Soft to palpation and No Tenderness to palpation present (GI) Auscultation: normal bowel sounds Extrem: General: normal to inspection, no pedal edema and no calf tenderness
[2022-07-11] MEDS: POLYSACCHARIDE IRON COMPLEX 150 MG CAPSULE PO (07:49)
[2022-07-11] MEDS: DOCUSATE SODIUM 100 MG CAPSULE PO (07:49)
[2022-07-11 08:01] VITALS: BP 124/83; PULSE 59; RESP 18; TEMP 36.4; O2SAT 99
--- NOTE | 2022-07-11 08:39 | PC.NURSE ---
On 07/11/22, the student, Jigna Wallace, provided care and completed [employer] documentation on this patient. I have reviewed the student's documentation and agree with the findings.
--- NOTE | 2022-07-11 10:19 | PC.NURSE ---
Patient viewed the discharge video Mother & Baby Care, The First Two Weeks . Patient was given the opportunity and encouraged to ask questions. Patient verbalized understanding of information shared and has been given the mother/baby guide for home reference.
[2022-07-12 11:21] VITALS: BP 128/77; PULSE 84; RESP 18; TEMP 36.6; O2SAT 98
== END 2022-07-11 10:35 | disposition home or self-care (01) | DRG 807 ==
LOC: ANHLDR 04:54 → ANHOB2 16:32
PROVIDERS: Advanced Practice Midwife; Admitting Provider Obstetrics & Gynecology; PCP Family Medicine; Visit Provider Obstetrics & Gynecology
DX: O70.0 First degree perineal laceration during delivery (principal); Z37.0 Single live birth; Z3A.39 39 weeks gestation of pregnancy
CPT/HCPCS: 36415; 85014; 85018; 85025; 86592; 86850; 86900; 86901; A9270; J2405; J2590; J2795; J7120

== ENCOUNTER 2023-06-10 15:06 | Outpatient (CLI) | payer OTHER, SELFPAY ==
--- NOTE | ~2023-06-10 | XR_ITS ---
EXAM: XR ankle LT min 3V, XR foot LT min 3V DATE: 06/10/2023 15:27 HISTORY: Pain in left ankle and joints of left foot, ROLLEDANKLE3/16 . COMPARISON: None available. FINDINGS: Normal mineralization. No fracture or dislocation. No lytic or blastic lesion. Mild degene rative change and hallux valgus at the first MTP joint. Moderate ankle joint effusion. No erosion or periosteal change. Lateral soft tissue swelling. IMPRESSION: No acute osseous finding in the left ankle or left foot. Moderate left ankle joint effusi on. Reviewed, dictated and finalized at location K. IMPRESSION: No acute osseous finding in the left ankle or left foot. Moderate l eft ankle joint effusion.
== END 2023-06-10 15:07 | disposition home or self-care (01) ==
LOC: CHSIMG 15:07
PROVIDERS: PCP Family Medicine; Visit Provider Family Medicine
DX: M25.572 Pain in left ankle and joints of left foot (principal); M25.472 Effusion, left ankle
CPT/HCPCS: 73610; 73630